=== PATIENT | male | born 1945 | race Caucasian/White ===

== ENCOUNTER 2021-09-11 21:41 | Emergency (ER) | payer MEDICARE, BC | END 2021-09-11 22:45 | disposition home or self-care (01) | LOC: JP.ED 21:41 | DX: N41.0 Acute prostatitis (principal); E78.00 Pure hypercholesterolemia, unspecified; I10 Essential (primary) hypertension; Z88.2 Allergy status to sulfonamides; Z79.899 Other long term (current) drug therapy | CPT/HCPCS: 81001; 87086; 99284 ==